=== PATIENT | male | born 1985 | race African-American/Black ===

== ENCOUNTER 2019-01-25 00:35 | Emergency (ER) | payer SELFPAY ==
[~2019-01-25] VITALS: Ht 177.8 cm; Wt 68.0 kg
[2019-01-25] MEDS ORDERED: SODIUM CHLORIDE 0.9% 1,000 ML IV ONE (00:56)
[2019-01-25 01:15] LABS: BASOPHILS % 1.1 % (0.0-2.0); EOSINOPHILS % 1.2 % (0.0-5.0); HEMATOCRIT. 45.9 % (42.0-52.0); HEMOGLOBIN. 15.6 g/dL (14.0-18.0); LYMPHOCYTES % 28.5 % (20.0-50.0); MEAN CORPUSCULAR VOLUME 97.2 fL (80.0-94.0); MEAN PLATELET VOLUME 11.4 fl (7.4-10.4); MONOCYTES % 10.5 % (2.0-8.0); NEUTROPHILS % 58.7 % (40.0-76.0); PLATELET 133 x1000/uL (130-400); RED BLOOD CELL COUNT 4.72 mill/uL (4.7-6.1); RED CELL DISTRIBUTION WIDTH 14.2 % (11.6-14.6)
[2019-01-25] MEDS ORDERED: LORAZEPAM 2MG/ML CPJ IV ONE (01:15)
[2019-01-25 01:18] LABS: CHLORIDE 108 mEq/L (98-107)
[2019-01-25 01:22] LABS: PARTIAL THROMBOPLASTIN TIME 24.8 sec (23.4-31.0); PROTHROMBIN TIME 10.5 sec (9.6-11.0)
[2019-01-25 01:26] LABS: ETHANOL BLOOD < 10 mg/dL
[2019-01-25 01:26] LABS: CLARITY URINE CLEAR (CLEAR); COLOR URINE YELLOW (YELLOW); KETONES URINE TRACE (NEGATIVE); LEUKOCYTE ESTERASE URINE NEGATIVE (NEGATIVE); NITRITE URINE NEGATIVE (NEGATIVE); OCCULT BLOOD URINE NEGATIVE (NEGATIVE); PH URINE 5.5 (4.5-8.0); PROTEIN URINE TRACE (NEGATIVE); SPECIFIC GRAVITY URINE 1.025 (1.005-1.030)
[2019-01-25 01:51] LABS: *AMPHETAMINES SCREEN URINE NEGATIVE (NEGATIVE); *BARBITURATES SCREEN URINE NEGATIVE (NEGATIVE); *BENZODIAZEPINES SCREEN URINE NEGATIVE (NEGATIVE); *COCAINE SCREEN URINE NEGATIVE (NEGATIVE); METHADONE URINE SCREEN NEGATIVE (NEGATIVE); OPIATES URINE SCREEN NEGATIVE (NEGATIVE)
[2019-01-25 01:52] LABS: CANNABINOID URINE SCREEN PRESUMTIVE POSITIVE (NEGATIVE); PHENCYCLIDINE URINE SCREEN NEGATIVE (NEGATIVE)
[2019-01-25 01:58] LABS: CARBAMAZEPINE < 0.5 ug/mL (4-12); DIGOXIN < 0.1 ng/mL (0.9-2.0); PHENOBARBITAL < 2.1 ug/mL (15.0-40.0); VALPROIC ACID < 3.0 ug/mL (50-100)
[2019-01-25] MEDS ORDERED: PHENYTOIN SODIUM 100MG/2ML VIAL IV ONE (04:45)
[2019-01-25] MEDS ORDERED: ACETAMINOPHEN 325MG TABLET PO ONE (05:15)
[2019-01-25 05:47] VITALS: BP 117/71
== END 2019-01-25 05:50 | disposition home or self-care (01) ==
LOC: EDBD 00:48 → ER 00:48
DX: R56.9 Unspecified convulsions (principal); R51 Headache
CPT/HCPCS: 36415; 70450; 71045; 80053; 80156; 80162; 80165; 80184; 80185; 80305; 80320; 81003; 85025; 85610; 85730; 93005; 96374; 96375; 99284; J1165; J2060; J7030; Z7610; G0480